=== PATIENT | male | born 1995 | race African-American/Black ===

== ENCOUNTER → 2018-04-30 | Outpatient (CLI) | payer BC ==
--- NOTE | 2018-04-30 17:32 | Diagnostic Imaging Report ---
PROCEDURE: CT right upper extremity without contrast. TECHNIQUE: Multiple contiguous axial images were obtained through the right upper extremity without the use of intravenous contrast. Sagittal and coronal reformations were then performed. INDICATION: Carpal dislocation. COMPARISON: None. FINDINGS: There is complete dislocation of the lunate bone anteriorly. Tiny bone fragments are seen adjacent to the lunate compatible with tiny lunate fractures. There is no distinct fracture line. There is some questionable malalignment of the navicular. The remainder of the visualized carpal bones are intact. Distal radial and ulnar articulation appear grossly normal and anatomic. The radiocarpal joint is intact. Moderate soft tissue swelling and hematoma is seen along the flexor ligaments of the mid to distal forearm. IMPRESSION: Complete anterior dislocation of the lunate with tiny chip fragments compatible with lunate fractures. The remainder of the carpal articulations are well aligned. Dictated by: Dictated on workstation # [id number]
== END ==
LOC: RAD 16:57
PROVIDERS: ATTEND Nurse Practitioner Family
DX: S63.094A Other dislocation of right wrist and hand, initial encounter (principal)
CPT/HCPCS: 73200